=== PATIENT | male | born 1940 | race Caucasian/White ===

== ENCOUNTER 2017-11-23 09:34 | Emergency (ER) | payer OTHER ==
[2017-11-23] MEDS: BENZOCAINE 20% ORAL SPR 60 ML CAN OROPHARYNG (10:00)
[2017-11-23] MEDS: OXYMETAZOLINE HCL 0.05% 15 ML NASAL SPRAY NASAL (10:10)
[2017-11-23] MEDS: LIDOCAINE HCL 4% TOPICAL SOLN 50 ML BTL TOPICAL (10:10)
[2017-11-23] MEDS: SILVER NITR/POTASSIUM NITRATE APPLICATORS TOPICAL (10:15)
[2017-11-23] MEDS: AMOXICILLIN (TRIHYDRATE) 500 MG CAP PO (10:27)
[2017-11-23] MEDS: traMADol HCL 50 MG TAB PO (10:27)
== END 2017-11-23 11:08 | disposition home or self-care (01) ==
LOC: PHED 09:34
DX: R04.0 Epistaxis (principal); E78.00 Pure hypercholesterolemia, unspecified; E11.9 Type 2 diabetes mellitus without complications; Z79.82 Long term (current) use of aspirin; Z95.2 Presence of prosthetic heart valve
CPT/HCPCS: 30901; 99284-25